=== PATIENT | male | born 1965 | race Caucasian/White ===

== ENCOUNTER 2017-02-18 17:23 | Emergency (ER) | payer OTHER ==
[~2017-02-18] VITALS: Ht 154.9 cm; Wt 74.2 kg
[~2017-02-18 17:23] MED LIST: ATOR-22 PO; PRED10TA PO; TRIA0.1C20 TOP; VENL75CA73 PO
[2017-02-18 17:26] VITALS: TEMP 36.9; Ht 154.9 cm; Wt 74.2 kg
[2017-02-18] MEDS ORDERED: ONDANSETRON INJ 2 MG/ML 2 ML VIAL IV STA (18:40)
[2017-02-18] MEDS ORDERED: OPTIRAY 320 IV PRN (18:45)
[2017-02-18 19:21] LABS: BASO % 0.3 %; BASO ABS # 0.03 K/uL (0-0.2); COMPLETE YES; EOS % 1.8 %; HEMATOCRIT 43.5 % (42-52); IG% 0.6 %; LYMPH ABS # 2.23 K/uL (1.2-3.4); MEAN CELL VOLUME 92.2 fL (80-100); MEAN CORPUSCULAR HEMOGLOBIN 31.4 pg (25-34); MEAN PLATELET VOLUME 9.3 fL (7.4-10.4); MONO % 7.5 %; NEUT % 70.8 %; PLATELET COUNT 255 K/uL (130-400); RED BLOOD COUNT 4.72 M/uL (4.7-6.1); WHITE BLOOD COUNT 11.72 K/uL (4.8-10.8)
[2017-02-18 19:39] LABS: ALT/SGPT 26 U/L (12-78); AST/SGOT 16 U/L (15-37); BLOOD UREA NITROGEN 15 mg/dl (7-18); BUN/CREATININE RATIO 19.5 (10-20); CALCIUM 8.3 mg/dl (8.5-10.1); CARBON DIOXIDE 27 mmol/L (21-32); CHLORIDE 108 mmol/L (98-107); CREATININE 0.79 mg/dl (0.60-1.40); GLUCOSE 107 mg/dl (70-99); POTASSIUM 3.5 mmol/L (3.5-5.1); SODIUM 139 mmol/L (136-145)
[2017-02-18 19:42] LABS: ALKALINE PHOSPHATASE 131 U/L (45-117)
[2017-02-18 20:07] LABS: MANUAL MICROSCOPIC REQUIRED? NO; REVIEW REQ? NO; URINE APPEARANCE CLEAR (CLEAR); URINE BILIRUBIN NEG (NEG); URINE COLOR YELLOW; URINE NITRITE NEG (NEG); URINE PH 6.5 (4.5-7.5); URINE SPECIFIC GRAVITY 1.013 (1.000-1.030); UROBILINOGEN NEG (NEG)
--- NOTE | 2017-02-18 21:20 | DIAGNOSTIC IMAGING REPORT ---
ABD/PELVIS IV AND ORAL CONT CT DOSE: 365.97 mGy.cm HISTORY: Pain llq eval for divertic TECHNIQUE: Multiaxial CT images of the abdomen and pelvis were performed following the use of intravenous and oral contrast. A dose lowering technique was utilized adhering to the principles of ALARA. COMPARISON STUDY: None. FINDINGS: Mild basilar atelectasis. Liver spleen and pancreas are uniform. Gallbladder is negative for distention. The bowel pattern is nonobstructive. Findings of acute proximal to mid sigmoid diverticulitis. Moderate pericolonic infiltrative change. Minimal inflammatory change distal descending colon. No evidence for abscess collection or obstructive change. IMPRESSION: Acute proximal to mid sigmoid diverticulitis. 2. Moderate pericolonic infiltrative change. 3. Minimal infiltrative changes distal descending colon. 4. No evidence for abscess collection or obstruction. The above report was generated using voice recognition software. It may contain grammatical, syntax or spelling errors. Electronically signed by: Arnel Manzanares M.D. 02/18/2017 9:19 PM Dictated Date/Time: 02/18/2017 9:16 PM
[2017-02-18] MEDS ORDERED: AMOXICILLIN/CLAVULANATE TAB 875 MG TAB PO ONE (21:30)
[2017-02-18] MEDS ORDERED: AMOX875T PO (21:41)
[2017-02-18 22:00] VITALS: BP 112/75; PULSE 75; O2SAT 98
--- NOTE | 2017-02-18 23:27 | EMERGENCY ROOM VISIT NOTE ---
History Report prepared by Donovan: Sanya Lopez Under the Supervision of: Dr. Vishal Valencia M.D. First contact with patient: 18:01 Chief Complaint: ABDOMINAL PAIN Stated Complaint: STOMACH PAIN History of Present Illness The patient is a 51 year old male who presents to the Emergency Room with complaints of left lower quadrant abdominal pain that began yesterday. He rates his pain an 8/10 in severity. At this time, he began experiencing pain in this area that radiates to his back. He denies any fevers, nausea, vomiting, diarrhea , melena, hematochezia, or hematuria. However, the patient states that for the past three months he has been experiencing problems with urination. These include some intermittent burning with urination and pain in his abdomen whenever he urinates. The patient's abdominal pain is exacerbated by movement. He denies any history of abdominal surgeries. His last bowel movement was this morning. Source of History: patient Onset: yesterday Position: abdomen (LLQ) Symptom Intensity: 8/10 Quality: sharp Timing: constant Modifying Factors (Worsening): movement Associated Symptoms: + back pain, + urinary symptoms (burning with urination ), No fevers, No nausea, No vomiting, No melena, No hematochezia, No diarrhea Note: He denies any hematuria. Review of Systems See HPI for pertinent positives & negatives. A total of 10 systems reviewed and were otherwise negative. Past Medical & Surgical Medical Problems: (1) Chest pain on exertion (2) Depression (3) Lumbago Family History Patient reports no known family medical history. Social History Smoking Status: Never Smoker Alcohol Use: none Drug Use: none Marital Status: single Occupation Status: employed Current/Historical Medications Scheduled Amoxicillin & Pot Clavulanate (Augmentin 875-125 mg), 875 MG PO BID Venlafaxine Hcl (Venlafaxine Extended Rel), 150 MG PO DAILY Allergies Coded Allergies: No Known Allergies (Unverified , 02/18/17) Physical Exam Vital Signs Date Time Temp Pulse Resp B/P (MAP) Pulse Ox O2 Delivery O2 Flow Rate FiO2 02/18/17 22:00 75 18 112/75 98 02/18/17 20:59 86 24 106/67 99 Room Air 02/18/17 18:57 81 20 120/75 97 Room Air 02/18/17 17:26 36.9 93 16 124/81 96 Room Air Physical Exam Constitutional: Vital signs reviewed. Eyes: Pupils are equal round reactive to light. Conjunctiva are noninjected. ENT: Pharynx is clear without erythema or exudate. Mucous membranes are moist. Neck supple without meningeal signs. Respiratory: Clear to auscultation bilaterally. Breath sounds are equal bilaterally. Cardiovascular: Regular rate and rhythm. No rubs or gallops. GI: Soft and nondistended. There is LLQ tenderness to palpation without guarding. Bowel sounds are present. Musculoskeletal: No peripheral edema. No CVA tenderness. Integumentary: No cyanosis. Neurological: The patient is awake and alert. No focal deficits. Psychiatric: Normal affect. Medical Decision & Procedures ER Provider Diagnostic Interpretation: Radiology results as stated below per my review and the radiologist's interpretation: ABD/PELVIS IV AND ORAL CONT CT DOSE: 365.97 mGy.cm HISTORY: Pain llq eval for divertic TECHNIQUE: Multiaxial CT images of the abdomen and pelvis were performed following the use of intravenous and oral contrast. A dose lowering technique was utilized adhering to the principles of ALARA. COMPARISON STUDY: None. FINDINGS: Mild basilar atelectasis. Liver spleen and pancreas are uniform. Gallbladder is negative for distention. The bowel pattern is nonobstructive. Findings of acute proximal to mid sigmoid diverticulitis. Moderate pericolonic infiltrative change. Minimal inflammatory change distal descending colon. No evidence for abscess collection or obstructive change. IMPRESSION: Acute proximal to mid sigmoid diverticulitis. 2. Moderate pericolonic infiltrative change. 3. Minimal infiltrative changes distal descending colon. 4. No evidence for abscess collection or obstruction. The above report was generated using voice recognition software. It may contain grammatical, syntax or spelling errors. Electronically signed by: Arnel Manzanares M.D. 02/18/2017 9:19 PM Dictated Date/Time: 02/18/2017 9:16 PM Laboratory Results 02/18/17 19:01 Red Blood Count 4.72, Mean Corpuscular Volume 92.2, Mean Corpuscular Hemoglobin 31.4, Mean Corpuscular Hemoglobin Concent 34.0, Mean Platelet Volume 9.3, Neutrophils (%) (Auto) 70.8, Lymphocytes (%) (Auto) 19.0, Monocytes (%) (Auto) 7.5, Eosinophils (%) (Auto) 1.8, Basophils (%) (Auto) 0.3, Neutrophils # (Auto) 8.30, Lymphocytes # (Auto) 2.23, Monocytes # (Auto) 0.88, Eosinophils # (Auto) 0.21, Basophils # (Auto) 0.03 02/18/17 19:01 Test 02/18/17 19:01 02/18/17 19:40 White Blood Count 11.72 K/uL (4.8-10.8) Red Blood Count 4.72 M/uL (4.7-6.1) Hemoglobin 14.8 g/dL (14.0-18.0) Hematocrit 43.5 % (42-52) Mean Corpuscular Volume 92.2 fL (80-100) Mean Corpuscular Hemoglobin 31.4 pg (25-34) Mean Corpuscular Hemoglobin Concent 34.0 g/dl (32-36) Platelet Count 255 K/uL (130-400) Mean Platelet Volume 9.3 fL (7.4-10.4) Neutrophils (%) (Auto) 70.8 % Lymphocytes (%) (Auto) 19.0 % Monocytes (%) (Auto) 7.5 % Eosinophils (%) (Auto) 1.8 % Basophils (%) (Auto) 0.3 % Neutrophils # (Auto) 8.30 K/uL (1.4-6.5) Lymphocytes # (Auto) 2.23 K/uL (1.2-3.4) Monocytes # (Auto) 0.88 K/uL (0.11-0.59) Eosinophils # (Auto) 0.21 K/uL (0-0.5) Basophils # (Auto) 0.03 K/uL (0-0.2) RDW Standard Deviation 43.7 fL (36.4-46.3) RDW Coefficient of Variation 13.0 % (11.5-14.5) Immature Granulocyte % (Auto) 0.6 % Immature Granulocyte # (Auto) 0.07 K/uL (0.00-0.02) Anion Gap 4.0 mmol/L (3-11) Est Creatinine Clear Calc Drug Dose 95.5 ml/min Estimated GFR () 120.5 Estimated GFR (Non- 104.0 BUN/Creatinine Ratio 19.5 (10-20) Calcium Level 8.3 mg/dl (8.5-10.1) Total Bilirubin 0.4 mg/dl (0.2-1) Direct Bilirubin < 0.1 mg/dl (0-0.2) Aspartate Amino Transf (AST/SGOT) 16 U/L (15-37) Alanine Aminotransferase (ALT/SGPT) 26 U/L (12-78) Alkaline Phosphatase 131 U/L (45-117) Total Protein 7.0 gm/dl (6.4-8.2) Albumin 3.5 gm/dl (3.4-5.0) Lipase 129 U/L (73-393) Urine Color YELLOW Urine Appearance CLEAR (CLEAR) Urine pH 6.5 (4.5-7.5) Urine Specific [place] 1.013 (1.000-1.030) Urine Protein NEG (NEG) Urine Glucose (UA) NEG (NEG) Urine Ketones NEG (NEG) Urine Occult Blood NEG (NEG) Urine Nitrite NEG (NEG) Urine Bilirubin NEG (NEG) Urine Urobilinogen NEG (NEG) Urine Leukocyte Esterase NEG (NEG) Laboratory results as reviewed by me. Medications Administered Medications (Trade) Dose Ordered Sig/Jefry Route Start Time Stop Time Status Last Admin Dose Admin Ondansetron HCl (Zofran Inj) 4 mg NOW STAT IV 02/18/17 18:40 02/18/17 18:42 DC 02/18/17 18:55 4 MG Amoxicillin/ Clavulanate Potassium (Augmentin Tab) 875 mg ONE ONCE PO 02/18/17 21:30 02/18/17 21:31 DC 02/18/17 21:59 875 MG ED Course 1801: The patient was evaluated in room C11B. A complete history and physical exam was performed. 1839: Ordered Zofran Inj 4 mg IV 2009: We discussed the patient's test results at this time. He is waiting for his CT scan. 2129: Ordered Augmentin Tab 875 mg PO 2138: Upon reevaluation, the patient appeared to have improvement of his symptoms. I discussed tonight's findings and test results with him. He verbalized agreement of the treatment plan. He was discharged home. Medical Decision This is a 51-year-old male who presents with left-sided flank pain. Differential diagnosis includes kidney stone, hydronephrosis, diverticulitis, strain, UTI, pyelonephritis. I did perform a limited focused review of portions of the patient's old chart on the electronic medical record. The patient has had no recent pertinent visits to this hospital. I did evaluate the patient as noted above. IV access was established. I did treat the patient with Zofran IV. I did order and personally review the patient 's urinalysis as described above. There is no evidence of infection. I did order and review the patient's blood work as noted in the electronic medical record. His white blood cell count is slightly elevated. I did order a CT of the abdomen and pelvis. I did review the images myself as well as the radiology report as described above. He has sigmoid diverticulitis. I did discuss the test results with the patient. I did treat the patient with Augmentin. He was discharged with a prescription for Augmentin for 14 days. He was advised follow up with his doctor and was given return instructions as outlined below. Medication Reconcilliation Current Medication List: was personally reviewed by me Blood Pressure Screening Patient's blood pressure: Normal blood pressure Blood pressure disposition: Did not require urgent referral Impression Primary Impression: Sigmoid diverticulitis Additional Impression: Dysuria Scribe Attestation The scribe's documentation has been prepared under my direct and personally reviewed by me in its entirety. I confirm that the note above accurately reflects all work, treatment, procedures, and medical decision making performed by me. Departure Information Dispostion Home / Self-Care Prescriptions Amoxicillin & Pot Clavulanate (Augmentin 875-125 mg) 1 Tab Tab 875 MG PO BID for 14 Days, #28 TAB Prov: Vishal Valencia M.D. 02/18/17 Referrals No Doctor, Assigned (PCP) Forms Call Back Authorization, HOME CARE DOCUMENTATION FORM, IMPORTANT VISIT INFORMATION Patient Instructions Diverticulitis [place], [facility] Additional Instructions You have been examined and treated today on an emergency basis only. This is not a substitute for, or an effort to provide, complete comprehensive medical care. It is impossible to recognize and treat all injuries or illnesses in a single emergency department visit. It is therefore important that you follow up closely with your physician. Call as soon as possible for an appointment. Return for worsening symptoms or if you develop fever, vomiting, or any other concerning symptoms. Problem Qualifiers
== END 2017-02-18 22:26 | disposition home or self-care (01) ==
LOC: C.EDB 17:25 → C.EDC 22:26
DX: K57.32 Diverticulitis of large intestine without perforation or abscess without bleeding (principal); R30.0 Dysuria; F32.9 Major depressive disorder, single episode, unspecified; Z79.899 Other long term (current) drug therapy

== ENCOUNTER → 2017-07-22 | Outpatient (CLI) | payer OTHER ==
[~2017-07-22] MED LIST changes: -ATOR-22 PO; -PRED10TA PO; -TRIA0.1C20 TOP
[2017-07-22 12:31] LABS: BASO % 0.6 %; BASO ABS # 0.04 K/uL (0-0.2); EOS % 3.6 %; EOS ABS # 0.24 K/uL (0-0.5); HEMATOCRIT 43.7 % (42-52); HEMOGLOBIN 15.4 g/dL (14.0-18.0); IG# 0.09 K/uL (0.00-0.02); LYMPH % 40.6 %; LYMPH ABS # 2.73 K/uL (1.2-3.4); MEAN CELL VOLUME 93.4 fL (80-100); MEAN CORPUSCULAR HEMOGLOBIN 32.9 pg (25-34); MEAN CORPUSCULAR HGB CONC 35.2 g/dl (32-36); MEAN PLATELET VOLUME 9.8 fL (7.4-10.4); MONO % 7.3 %; MONO ABS # 0.49 K/uL (0.11-0.59); NEUT % 46.6 %; NEUT ABS # 3.13 K/uL (1.4-6.5); PLATELET COUNT 279 K/uL (130-400); RED CELL DISTRIBUTION WIDTH CV 13.4 % (11.5-14.5); RED CELL DISTRIBUTION WIDTH SD 45.8 fL (36.4-46.3); WHITE BLOOD COUNT 6.72 K/uL (4.8-10.8)
[2017-07-22 12:52] LABS: ALBUMIN 3.6 gm/dl (3.4-5.0); ALT/SGPT 40 U/L (12-78); BLOOD UREA NITROGEN 17 mg/dl (7-18); CALCIUM 8.8 mg/dl (8.5-10.1); CARBON DIOXIDE 24 mmol/L (21-32); CHOLESTEROL 278 mg/dl (0-200); CREATININE 0.75 mg/dl (0.60-1.40); GLUCOSE 87 mg/dl (70-99); POTASSIUM 3.8 mmol/L (3.5-5.1); SODIUM 138 mmol/L (136-145)
[2017-07-22 12:57] LABS: ALKALINE PHOSPHATASE 95 U/L (45-117); AST/SGOT 29 U/L (15-37); LDL CHOLESTEROL CALCULATED 191 mg/dl; TOTAL PROTEIN 6.9 gm/dl (6.4-8.2)
== END | disposition home or self-care (01) ==
LOC: C.LABBFT 09:45
PROVIDERS: ATTEND Physician Assistant Medical
DX: E78.5 Hyperlipidemia, unspecified (principal); Z12.5 Encounter for screening for malignant neoplasm of prostate; E55.9 Vitamin D deficiency, unspecified

== ENCOUNTER 2018-10-14 13:12 | Observation (INO) ==
[2018-10-14] MEDS ORDERED: NITROGLYCERIN SL 0.4 MG/TAB TAB SL PRN ×2 (13:27→17:23)
[2018-10-14] MEDS ORDERED: ASPIRIN CHEW 324 MG PO STA (13:27)
[2018-10-14] MEDS ORDERED: SODIUM CHLORIDE 0.9% 1000ML 1,000 ML IV SCH (13:30)
[2018-10-14] MEDS ORDERED: ASPIRIN 81 MG CHEW ONE ×2 (13:33)
[2018-10-14 13:44] LABS: Hematocrit (blood only) 44.8 % (42-52); Hemoglobin 15.7 g/dL (14.0-18.0); Mean Corpuscular Volume 93.1 fL (80-100); Mean Platelet Volume 9.4 fL (7.4-10.4); Platelet Count 279 K/uL (130-400); RDW Coefficient of Variation 13.5 % (11.5-14.5); RDW Standard Deviation 46.1 fL (36.4-46.3); Red Blood Count 4.81 M/uL (4.7-6.1); White Blood Count 8.74 K/uL (4.8-10.8)
[2018-10-14 13:56] LABS: Alanine Aminotransferase 26 U/L (12-78); Albumin Level 3.8 gm/dl (3.4-5.0); Aspartate Aminotransferase 17 U/L (15-37); BUN Creatinine Ratio 12.5 (10-20); Bilirubin Direct < 0.1 mg/dl (0-0.2); Blood Urea Nitrogen 11 mg/dl (7-18); Calcium 8.5 mg/dl (8.5-10.1); Carbon Dioxide 23 mmol/L (21-32); Chloride 107 mmol/L (98-107); Creatinine Clr Calc Pharmacy 83.1 ml/min; Est GFR (African American) 113.7; Est GFR (Non-African American) 98.1; Glucose 120 mg/dl (70-99); Potassium 3.3 mmol/L (3.5-5.1); Sodium 138 mmol/L (136-145)
[2018-10-14 13:58] LABS: INR 1.2 (0.9-1.1); Partial Thromboplastin Ratio 1.1; Partial Thromboplastin Time 30.2 Seconds (21.0-31.0); Prothrombin Time 11.7 Seconds (9.0-12.0)
--- NOTE | 2018-10-14 13:58 | XRay Report ---
XR chest 2V routine CLINICAL HISTORY: Chest Pain pain COMPARISON STUDY: 08/14/2018 FINDINGS: The bones soft tissues and hemidiaphragms are normal. The cardiomediastinal silhouette is n ormal. The lungs are clear. The pulmonary vasculature is normal. IMPRESSION: Negative chest. The above report was generated using voice recognition software. It may contain grammatical, syntax or spelling errors. Electronically signed by: Arnel Manzanares M.D. 10/14/2018 1:57 PM
[2018-10-14 14:01] LABS: Alkaline Phosphatase 122 U/L (45-117); Bilirubin,Total 0.5 mg/dl (0.2-1); Total Protein 7.3 gm/dl (6.4-8.2); Troponin I < 0.015 ng/ml (0-0.045)
[2018-10-14] MEDS ORDERED: ONDANSETRON INJ 2 MG/ML 2 ML VIAL ONE (14:42)
[2018-10-14 14:53] LABS: ALC (manual) 4.41 K/uL (1.2-3.4); Basophils # (manual) 0.08 K/uL (0-0.2); Basophils % (manual) 0.9 %; Eosinophils # (manual) 0.62 K/uL (0-0.5); Eosinophils % (manual) 7.1 %; Lymphocytes % (manual) 19.5 %; Monocytes # (manual) 0.54 K/uL (0.11-0.59); Monocytes % (manual) 6.2 %; Myelocytes # (manual) 0.08 K/uL (0-0); Myelocytes % (manual) 0.9 %; Neutrophils % (manual) 34.4 %; Reactive Lymphocytes # (manual) 2.71 K/uL
--- NOTE | 2018-10-14 14:56 | History & Physical Report ---
Date of Service October 14, 2018 Assessment & Plan (1) Chest pain: Resolved s/p nitro x3 Trop neg x1, serials pending Stress ECHO in AM CBC WNL Slight hypoK, treat PO and monitor CXR and EKG WNL Mg pending Lyme pending Holding on CTA given no risk factors and VSS, very active daily Reports hx of neg stress test 5 yrs ago (2) Hypokalemia: Replace and monitor (3) Hyperlipidemia: Hx of medication use, d/c'd due to loss of insurance ?? [employer] formulary Lipids 07/2017 with elevated LDL and TG Lipids pending (4) Depression: Hx of medication use, d/c'd due to loss of insurance ?? [employer] formulary (5) DVT prophylaxis: SCDs History of Present Illness Primary Care Provider: Manny Coronado MD 53 y/o F c/o chest pain. Pt states that he was at work and had sudden onset of substernal chest pain. It does not radiate. He found he was SOB and felt like everyone around him was irritating to him, which is not usual. He was having difficulty thinking clearly. He had full body shaking. He notes that he had pain to the back of his neck. He states that he had this same pain to the back of his neck a few days ago, but it resolved with tylenol use and did not return until today. Pt states he feels nauseated and his stomach is cramping. No v/d. Pt denies fever, LE pain or swelling. He was lightheaded at work as well. Pt was given nitro x3. No help until the 3rd nitro. At present, he feels very shaky. He has chest tightness but no pain. He has ongoing neck pain. Pt states he had an episode of chest pain about 5 years ago. He was seen at [facility] and states he was told everything was neg. He did have a treadmill stress test as part of this workup. Pt denies recent travel. 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 Pt used to take medication for HLD and depression. He lost his health insurance and therefore these were stopped about 3 yrs ago. Allergies Allergy/AdvReac Type Severity Reaction Status Date / Time No Known Allergies Allergy Verified 08/14/18 15:14 Home Medications Home Medications Medication Instructions Recorded Confirmed Type ibuprofen [Advil] 200 - 400 mg PO QID PRN 06/09/18 08/14/18 History Past Med/Surg History Medical History Hyperlipidemia Surgical History Hx of shoulder surgery Family History Other No significant family history Social History marital status: Current Living Situation: Family current occupational status: employed Feels Safe at Home: Yes Smoking Status: Never smoker Hx Alcohol Use: Yes (1-2 beers once a week) Hx Substance Use: Yes (remote marijuana use many years ago) Review of Systems Pertinent positives and negatives reviewed in HPI--all others negative Physical Exam Vital Signs (Past 24 Hours): Last Vital Signs Temp 36.7 C 10/14/18 13:15 Pulse 65 10/14/18 14:25 Resp 16 10/14/18 14:25 BP 119/66 10/14/18 14:25 Pulse Ox 97 10/14/18 13:49 Constitutional: WD/WN, vitals as above + obese shaking Eyes: normal visual lozano by confrontation and + anicteric sclerae Neck: normal visual inspection and trachea midline Respiratory: normal respiratory effort, lungs clear to auscultation Cardiovascular: Rate/Rhythm: regular rate and regular rhythm Gastrointestinal (Abdomen): Inspection/Auscultation: abdomen not distended Percussion/Palpation: abdomen soft; abdomen nontender Musculoskeletal: Head/Neck/Chest: normocephalic and head atraumatic negative for edema, peripheral pulses intact Skin: no rashes, warm and dry Neurologic: awake; not confused Speech / Cognition: normal speech Psychiatric: Orientation: oriented x 3 Affect: + anxious affect Results & Data Diagnostic Findings CXR: neg for acute ECG Rhythm: normal sinus Additional Comments: Sinus arrhythmia Code Status & VTE Plan Code Status Full code VTE Prophylaxis Plan VTE Prophylaxis will be ordered: Yes (1) Chest pain Chest pain type: unspecified Qualified Code(s): R07.9 - Chest pain, unspecified
[2018-10-14] MEDS ORDERED: ALUMINUM/MAGNESIUM SUSP 18 ML, LIDOCAINE HCL VISCOUS 2% 6 ML, BARCODE IDENTIFIER 1 EA PO ONE (15:00)
[2018-10-14] MEDS ORDERED: GI COCKTAIL ED USE PO ONE (15:41)
[2018-10-14] MEDS ORDERED: ACETAMINOPHEN 500 MG TAB PO STA (15:46)
[2018-10-14] MEDS ORDERED: IBUPROFEN 200 MG TAB PO PRN (17:23)
[2018-10-14] MEDS ORDERED: MAGNESIUM HYDROXIDE SUSP 30 ML UDC PO PRN (17:23)
[2018-10-14] MEDS ORDERED: POTASSIUM CHLORIDE 20 MEQ TABCR PO STA (17:23)
[2018-10-14] MEDS ORDERED: ONDANSETRON INJ 2 MG/ML 2 ML VIAL IV PRN (17:23)
[2018-10-14] MEDS ORDERED: ALUMINUM/MAGNESIUM SUSP 72 ML, LIDOCAINE HCL VISCOUS 2% 24 ML, BARCODE IDENTIFIER 1 EA PO PRN (17:23)
[2018-10-14] MEDS ORDERED: ACETAMINOPHEN 325 MG TAB PO PRN (17:23)
--- NOTE | 2018-10-14 17:58 | Emergency Department Note ---
Entered by Lu Gregg acting as a scribe for History of Present Illness General Chief complaint: Shortness of Breath/Dyspnea Stated complaint: LIGHT HEADED, SOB, SHAKING Time Seen by Provider: 10/14/18 13:22 Source: patient History of Present Illness Onset (ago): hour(s) 1 Location: chest Radiation: non-radiation Pain Consistency: + constant Maximum Pain Intensity: 0 Current Pain Intensity: 10 Quality: + other (pressure) Associated symptoms: + confusion; no cough and no fever/chills (fever) The patient is a 53 year old male who presents to the Emergency Room with complaints of constant chest pain starting an hour ago. The patient states that the pain is in the center of his chest and feels like a pressure. He currently rates his pain as a 10/10 in severity. The patient notes a history of hyperlipidemia. The patient denies a cardiac history, a history of diabetes, a history of hypertension, recent travel, cough, fever, use of hormone pills/cream , a history of cancer, the pain radiating anywhere, and taking aspirin before coming in. Home Medications Home Medications Medication Instructions Recorded Confirmed Type No Known Home Medications 10/14/18 10/14/18 History Allergies Allergy/AdvReac Type Severity Reaction Status Date / Time No Known Allergies Allergy Verified 10/14/18 15:00 Past Med/Surg History Medical History Hyperlipidemia Surgical History Hx of shoulder surgery Social History Preferred Language: Faroese Communication Ability: Effective Net Solutions Architect Required: No Beliefs That Will Affect Care: None marital status: Current Living Situation: Alone current occupational status: employed Other Information That Helps Us Care for You: No Feels Safe at Home: No Safety Concerns: Feels Safe At This Time Smoking Status: Never smoker Hx Alcohol Use: Yes Hx Substance Use: No Review of Systems See HPI for pertinent positives & negatives. and A total of 10 systems reviewed and were otherwise negative Physical Exam Vital Signs Vital Signs - 24 hr 10/14/18 13:15 10/14/18 13:22 10/14/18 13:49 Temperature 36.7 C Temperature Source Oral Sepsis Recent Fever Within 48 Hours No Sepsis Action Taken by Nursing No Action Required Pulse Rate 75 Pulse Rate [Apical] 71 Pulse Rhythm Regular Pulse Strength Normal Respiratory Rate 20 16 Respiratory Effort / Characteristics Non-Labored Spontaneous Respiratory Depth Normal Respiratory Pattern Regular Blood Pressure 153/85 H Blood Pressure [Right Arm] 167/92 H Blood Pressure Mean 107 Blood Pressure Mean [Right Arm] 117 Blood Pressure Position Sitting Pulse Oximetry 97 97 97 Oxygen Delivery Method Room Air Room Air Room Air 10/14/18 14:08 10/14/18 14:25 10/14/18 15:51 Temperature Temperature Source Sepsis Recent Fever Within 48 Hours Sepsis Action Taken by Nursing Pulse Rate Pulse Rate [Apical] 69 65 76 Pulse Rhythm Pulse Strength Respiratory Rate 16 16 20 Respiratory Effort / Characteristics Respiratory Depth Respiratory Pattern Blood Pressure Blood Pressure [Right Arm] 113/71 119/66 105/68 Blood Pressure Mean Blood Pressure Mean [Right Arm] 85 83 80 Blood Pressure Position Pulse Oximetry 96 Oxygen Delivery Method Room Air 10/14/18 16:00 10/14/18 16:50 10/14/18 17:23 Temperature 36.9 C Temperature Source Oral Sepsis Recent Fever Within 48 Hours Sepsis Action Taken by Nursing Pulse Rate Pulse Rate [Apical] 76 80 Pulse Rhythm Pulse Strength Respiratory Rate 20 18 Respiratory Effort / Characteristics Non-Labored Spontaneous Respiratory Depth Normal Respiratory Pattern Blood Pressure Blood Pressure [Right Arm] 116/74 127/82 Blood Pressure Mean Blood Pressure Mean [Right Arm] 88 97 Blood Pressure Position Pulse Oximetry 96 97 Oxygen Delivery Method Room Air Room Air Physical Exam GENERAL: He is oriented to person, place, and time. He appears well-developed and well-nourished. He does not appear distressed. HENT: Exam performed. - Head: Normocephalic and atraumatic. - Right Ear: External ear normal. No mastoid tenderness. - Left Ear: External ear normal. No mastoid tenderness. - Mouth/Throat: The oropharynx is clear and moist. No trismus in the jaw. No dental abscesses or uvula swelling. No oropharyngeal exudate or tonsillar abscesses. EYES: Conjunctivae and EOM are normal. Pupils are equal, round, and reactive to light. Right eye exhibits no discharge. Left eye exhibits no discharge. No scler al icterus. NECK: Normal range of motion. Neck supple. No JVD present. No spinous process tenderness present. No carotid bruit present. No rigidity. No tracheal deviation and normal range of motion present. No Brudzinski's sign and no Kernig's sign noted. CV: Normal rate, regular rhythm, normal heart sounds and intact distal pulses. There is no peripheral edema. Palpable radial pulses bue. PULM/CHEST: Effort normal and breath sounds normal. No respiratory distress. No stridor. He has no wheezes. He has no rales. - Chest Wall: He exhibits no tenderness. ABD: The abdomen is soft. Bowel sounds are normal. He has no distension. No mass is present. There is no tenderness. There is no rebound, no guarding, no Arenas's sign and no tenderness at McBurney's point. Rovsig negative. MUSC/SKEL: Normal range of motion. There is no peripheral edema, tenderness or deformity. LYMPH: No cervical adenopathy. NEURO: He is alert and oriented to person, place, and time. He has normal strength. No cranial nerve deficit or sensory deficit. Coordination and gait normal. GCS eye subscore is 4. GCS verbal subscore is 5. GCS motor subscore is 6. Cerebellar tests wnl. SKIN: Skin is warm and dry. He is not diaphoretic. PSYCH: He has a normal mood and affect. Behavior is normal. Judgment and thought content normal. Course 1323: The patient was evaluated in room A9B, and a complete history and physical examination were performed. 1357: I reevaluated the patient and his vitals are stable after two sublingual nitroglycerin. He currently rates his pain as a 5/10 in severity and reports that he is much more comfortable. 1422: I reevaluated the patient and his vitals are stable. His labs and imaging are within normal limits. The patient reports that his chest pain after the third sublingual nitroglycerin is a 0/10 in severity. Given his resolution of chest pain with Nitroglycerin, his age, and hyperlipidemia, he will be admitted for observation for rule out ACS.I reviewed the patient's case with Dr. Guerita CHANG Hospitalist. She will evaluate the patient for further management. Consultations Consultation #1: [facility] will evaluate the patient for further management. Time: 14:25 Administered Medications Nitroglycerin (Nitrostat) 0.4 mg SL UD PRN PRN Reason: Chest Pain Stop: 11/13/18 13:26 Last Admin: 10/14/18 13:39 Dose: 0.4 mg Documented by: [id number] Discontinued Medications Acetaminophen (Tylenol) 1,000 mg PO NOW STA Stop: 10/14/18 15:47 Last Admin: 10/14/18 15:52 Dose: 1,000 mg Documented by: [id number] Al Hydrox/Mg Hydrox/Simethicone () Confirm Administered Dose 1 dose PO .STK-MED ONE Stop: 10/14/18 15:42 Last Admin: 10/14/18 15:46 Dose: 1 dose Documented by: [id number] Aspirin (Aspirin) 324 mg PO NOW STA Stop: 10/14/18 13:28 Last Admin: 10/14/18 13:39 Dose: Not Given Documented by: [id number] Aspirin (Aspirin Chew) Confirm Administered Dose 81 mg .ROUTE .STK-MED ONE Stop: 10/14/18 13:34 Last Admin: 10/14/18 13:39 Dose: 81 mg Documented by: [id number] Aspirin (Aspirin Chew) Confirm Administered Dose 243 mg .ROUTE .STK-MED ONE Stop: 10/14/18 13:34 Last Admin: 10/14/18 13:39 Dose: 243 mg Documented by: [id number] Al Hydrox/Mg Hydrox/Simethicone 18 ml/ Lidocaine HCl 6 ml/ BARCODE IDENTIFIER 1 ea 0 ml PO ONE ONE Stop: 10/14/18 15:01 Last Admin: 10/14/18 15:46 Dose: Not Given Documented by: [id number] Sodium Chloride (Nss 1000ml) 1,000 mls @ 999 mls/hr IV .Q1H1M KIRSTEN Stop: 10/14/18 14:30 Last Infusion: 10/14/18 14:34 Dose: 0 mls/hr Documented by: [id number] Admin: 10/14/18 13:39 Dose: 999 mls/hr Documented by: [id number] Ondansetron HCl (Zofran) Confirm Administered Dose 4 mg .ROUTE .STK-MED ONE Stop: 10/14/18 14:43 Last Admin: 10/14/18 14:50 Dose: 4 mg Documented by: [id number] Medical Decision Making Medical Records Attestation: I reviewed the patient's medical records. Home Medications Current Medication List: was personally reviewed by me Laboratory Data Attestation: I reviewed the patient's lab results. Result diagrams: 10/14/18 13:21 10/14/18 13:21 Lab Results 10/14/18 10/14/18 10/14/18 Range/Units 13:21 13:21 13:21 WBC 8.74 (4.8-10.8) K/uL RBC 4.81 (4.7-6.1) M/uL Hgb 15.7 (14.0-18.0) g/dL Hct 44.8 (42-52) % MCV 93.1 (80-100) fL MCH 32.6 (25-34) pg MCHC 35.0 (32-36) g/dL RDW Std Deviation 46.1 (36.4-46.3) fL RDW Coeff of Tessa 13.5 (11.5-14.5) % Plt Count 279 (130-400) K/uL MPV 9.4 (7.4-10.4) fL Neutrophils % (Manual) 34.4 % Lymphocytes % (Manual) 19.5 % Reactive Lymphs % (Man) 31.0 % Monocytes % (Manual) 6.2 % Eosinophils % (Manual) 7.1 % Basophils % (Manual) 0.9 % Myelocytes % (Man) 0.9 % Neutrophils # (Manual) 3.01 (1.4-6.5) K/uL Total Absolute Neuts 3.01 (1.4-6.5) K/uL Lymphocytes # (Manual) 1.70 (1.2-3.4) K/uL Reactive Lymphs # 2.71 K/uL Total Abs Lymphocytes 4.41 H (1.2-3.4) K/uL Monocytes # (Manual) 0.54 (0.11-0.59) K/uL Eosinophils # (Manual) 0.62 H (0-0.5) K/uL Basophils # (Manual) 0.08 (0-0.2) K/uL Myelocytes # (Manual) 0.08 H (0-0) K/uL PT 11.7 (9.0-12.0) Seconds INR 1.2 H (0.9-1.1) APTT 30.2 (21.0-31.0) Seconds PTT Ratio 1.1 Sodium 138 (136-145) mmol/L Potassium 3.3 L (3.5-5.1) mmol/L Chloride 107 (98-107) mmol/L Carbon Dioxide 23 (21-32) mmol/L Anion Gap 8.0 (3-11) BUN 11 (7-18) mg/dl Creatinine 0.88 (0.6-1.4) mg/dl Est Cr Clr Drug Dosing 83.1 ml/min Est GFR ( Amer) 113.7 Est GFR (Non-Af Amer) 98.1 BUN/Creatinine Ratio 12.5 (10-20) Glucose 120 H (70-99) mg/dl Calcium 8.5 (8.5-10.1) mg/dl Total Bilirubin 0.5 (0.2-1) mg/dl Direct Bilirubin < 0.1 (0-0.2) mg/dl AST 17 (15-37) U/L ALT 26 (12-78) U/L Alkaline Phosphatase 122 H (45-117) U/L Troponin I < 0.015 (0-0.045) ng/ml Total Protein 7.3 (6.4-8.2) gm/dl Albumin 3.8 (3.4-5.0) gm/dl Lipase 94 (73-393) U/L 10/14/18 Range/Units 17:01 WBC (4.8-10.8) K/uL RBC (4.7-6.1) M/uL Hgb (14.0-18.0) g/dL Hct (42-52) % MCV (80-100) fL MCH (25-34) pg MCHC (32-36) g/dL RDW Std Deviation (36.4-46.3) fL RDW Coeff of Tessa (11.5-14.5) % Plt Count (130-400) K/uL MPV (7.4-10.4) fL Neutrophils % (Manual) % Lymphocytes % (Manual) % Reactive Lymphs % (Man) % Monocytes % (Manual) % Eosinophils % (Manual) % Basophils % (Manual) % Myelocytes % (Man) % Neutrophils # (Manual) (1.4-6.5) K/uL Total Absolute Neuts (1.4-6.5) K/uL Lymphocytes # (Manual) (1.2-3.4) K/uL Reactive Lymphs # K/uL Total Abs Lymphocytes (1.2-3.4) K/uL Monocytes # (Manual) (0.11-0.59) K/uL Eosinophils # (Manual) (0-0.5) K/uL Basophils # (Manual) (0-0.2) K/uL Myelocytes # (Manual) (0-0) K/uL PT (9.0-12.0) Seconds INR (0.9-1.1) APTT (21.0-31.0) Seconds PTT Ratio Sodium (136-145) mmol/L Potassium (3.5-5.1) mmol/L Chloride (98-107) mmol/L Carbon Dioxide (21-32) mmol/L Anion Gap (3-11) BUN (7-18) mg/dl Creatinine (0.6-1.4) mg/dl Est Cr Clr Drug Dosing ml/min Est GFR ( Amer) Est GFR (Non-Af Amer) BUN/Creatinine Ratio (10-20) Glucose (70-99) mg/dl Calcium (8.5-10.1) mg/dl Total Bilirubin (0.2-1) mg/dl Direct Bilirubin (0-0.2) mg/dl AST (15-37) U/L ALT (12-78) U/L Alkaline Phosphatase (45-117) U/L Troponin I < 0.015 (0-0.045) ng/ml Total Protein (6.4-8.2) gm/dl Albumin (3.4-5.0) gm/dl Lipase (73-393) U/L Imaging Data Radiologist's Impression: Radiology results as stated below per my review and the radiologist's interpretation: XR chest 2V routine CLINICAL HISTORY: Chest Pain pain COMPARISON STUDY: 08/14/2018 FINDINGS: The bones soft tissues and hemidiaphragms are normal. The cardiomediastinal silhouette is normal. The lungs are clear. The pulmonary vasculature is normal. IMPRESSION: Negative chest. The above report was generated using voice recognition software. It may contain grammatical, syntax or spelling errors. Electronically signed by: Arnel Manzanares M.D. 10/14/2018 1:57 PM ECG Data Attestation: I personally reviewed and interpreted this ECG as follows: Indication: chest pain Rate (beats per minute): 78 Rhythm: sinus rhythm Findings: + other (KS, QRS, and QT-c intervals are within normal limits); no ST depression and no ST elevation Blood Pressure Blood Pressure Findings: Elevated blood pressure Blood Pressure Disposition: further management by hospitalist ODESSA Narrative 1323: The patient was evaluated in room A9B, and a complete history and physical examination were performed. 1357: I reevaluated the patient and his vitals are stable after two sublingual nitroglycerin. He currently rates his pain as a 5/10 in severity and reports that he is much more comfortable. 1422: I reevaluated the patient and his vitals are stable. His labs and imaging are within normal limits. The patient reports that his chest pain after the third sublingual nitroglycerin is a 0/10 in severity. Given his resolution of chest pain with Nitroglycerin, his age, and hyperlipidemia, he will be admitted for observation for rule out ACS.I reviewed the patient's case with Dr. Massey- [facility] Hospitalist. She will evaluate the patient for further management. Impression & Plan Chest pain Discharge Plan Visit Data *Final* Discharge Date/Time: 10/14/18 16:40 Chief Complaint: Shortness of Breath/Dyspnea Stated Complaint: LIGHT HEADED, SOB, SHAKING ED Provider: Zackery Felton Discharge Problem: Chest pain Patient Disposition: Admitted As Inpatient Discharge Instructions Interventions: ED Discharge Assessment Last Done: 10/14/18 16:40 Discharge Problem: Chest pain Qualifiers: Chest pain type: unspecified Qualified Code(s): R07.9 - Chest pain, unspecified The scribe's documentation has been prepared under my direction and personally reviewed by me in its entirety. I confirm that the note above accurately reflects all work, treatment, procedures, and medical decision making performed by me.
[2018-10-14 18:09] LABS: Magnesium 2.2 mg/dl (1.8-2.4); Troponin I < 0.015 ng/ml (0-0.045)
[2018-10-14] MEDS ORDERED: INFLUENZA VIRUS QUAD VACCINE 0.5 ML SYR IM ONE (18:45)
[2018-10-14] MEDS ORDERED: INFLUENZA ADMINISTRATION CHARGE ONE (18:45)
[2018-10-14 18:47] LABS: Lyme Ab IgG w/WB Rflx Negative (Negative); Lyme Ab IgM w/WB Rflx Negative (Negative)
[2018-10-15 06:35] LABS: BUN Creatinine Ratio 15.3 (10-20); Calcium 8.2 mg/dl (8.5-10.1); Creatinine Clr Calc Pharmacy 81.8 ml/min; Est GFR (African American) 113.1; Est GFR (Non-African American) 97.6
[2018-10-15 06:39] LABS: Potassium 4.1 mmol/L (3.5-5.1)
--- NOTE | 2018-10-23 11:04 | Discharge Summary ---
Date of Service October 15, 2018 Admission HPI Per Admitting Provider 53 y/o F c/o chest pain. Pt states that he was at work and had sudden onset of substernal chest pain. It does not radiate. He found he was SOB and felt like everyone around him was irritating to him, which is not usual. He was having difficulty thinking clearly. He had full body shaking. He notes that he had pain to the back of his neck. He states that he had this same pain to the back of his neck a few days ago, but it resolved with tylenol use and did not return until today. Pt states he feels nauseated and his stomach is cramping. No v/d. Pt denies fever, LE pain or swelling. He was lightheaded at work as well. Pt was given nitro x3. No help until the 3rd nitro. At present, he feels very shaky. He has chest tightness but no pain. He has ongoing neck pain. Pt states he had an episode of chest pain about 5 years ago. He was seen at [facility] and states he was told everything was neg. He did have a treadmill stress test as part of this workup. Pt denies recent travel. 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 Pt used to take medication for HLD and depression. He lost his health insurance and therefore these were stopped about 3 yrs ago. Principal Diagnosis chest pain Discharge Exam Constitutional: WD/WN, vitals as above + obese shaking Eyes: normal visual lozano by confrontation and + anicteric sclerae Neck: normal visual inspection and trachea midline Respiratory: normal respiratory effort, lungs clear to auscultation Cardiovascular: Rate/Rhythm: regular rate and regular rhythm Gastrointestinal (Abdomen): Inspection/Auscultation: abdomen not distended Percussion/Palpation: abdomen soft; abdomen nontender Musculoskeletal: Head/Neck/Chest: normocephalic and head atraumatic negative for edema, peripheral pulses intact Skin: no rashes, warm and dry Neurologic: awake; not confused Speech / Cognition: normal speech Psychiatric: Orientation: oriented x 3 Affect: + anxious affect Discharge Data Allergies Allergy/AdvReac Type Severity Reaction Status Date / Time No Known Allergies Allergy Verified 10/14/18 15:00 Consultations 10/14/18 14:25 ED Decision to Admit Stat 10/14/18 17:23 Consult Case Management - Discharge Planning Routine Hospital Course (1) Chest pain: Resolved s/p nitro x3 Trop neg x3, Stress ECHO in AM: negative (however Rate was not attained) CBC WNL CXR and EKG WNL Holding on CTA given no risk factors and VSS, very active daily Reports hx of neg stress test 5 yrs ago Oretest score was low risk. (2) Hypokalemia: Replace and monitor (3) Hyperlipidemia: Hx of medication use, d/c'd due to loss of insurance ?? [employer] formulary Lipids 07/2017 with elevated LDL and TG LDL remeaisn elevated, but patient 10 ASCVD does not meet requirement for statins. (4) Depression: Hx of medication use, d/c'd due to loss of insurance ?? [employer] formulary (5) DVT prophylaxis: SCDs Total Time Total Time Spent Total Time Spent (In Minutes): 32 Total Time Includes: Examination of the Patient, Discharge Planning and Medication Reconciliation Discharge Plan Discharge Items Patient Disposition: Home - Self-Care Reason For Visit: CHEST PAIN Discharge Diagnosis: Chest pain Discharge Goals: Decrease discomfort Activity: Resume your previous activity Non-emergency contact: Primary Care Provider Call non-emergency contact if: you have any medication questions Follow-up/Referrals: Michael Coronado MD [Primary Care Provider] - Diet: Heart Healthy and Low Sodium (2gm) Addtl Provider Instructions: Followup with PCP in 2 weeks Prescriptions: No Action No Known Home Medications RF: 0 Stand-Alone Forms: [facility] Discharge Orders: Discharge Order (Routine); Ordered 10/15/18 Ordered By: Edward Barbosa Admission Data Admit Date/Time: 10/14/18 14:46 Attending Provider: Edward Barbosa Admit Provider: Ingrid Massey Primary Care Provider: Michael Coronado Other Providers: Ingrid Massey Service: Telemetry Other Interventions: Discharge Summary Assessment (RN) Last Done: 10/15/18 15:36 DC Date/Time DO NOT enter until pt leaves facility: 10/15/18 16:00
== END 2018-10-15 16:00 | disposition home or self-care (01) ==
LOC: 2S 13:12 → ED 13:12 → SUATTDRO 14:46 → 2S 16:40